=== PATIENT | female | born 1955 | race Caucasian/White ===

== ENCOUNTER 2019-10-08 11:07 | Outpatient (RCR) | payer MEDICARE, MEDICAID, SELFPAY ==
--- NOTE | 2019-10-10 16:41 | PTOPEVAL ---
Thank you for referring this patient to [facility] [facility]. Please review, sign, date and return this plan of care [facility]. I agree with and certify that the following plan of care is medically necessary. Referring Physician Date Admitting Provider: Attending Provider: Vero Henry NP Referring Provider: *PT Outpatient Evaluation Start: 10/08/19 11:10 Freq: Status: Active Protocol: Document 10/08/19 11:10 IRASEMA (Rec: 10/08/19 11:55 [email or web address] [id number]) Therapy Assessment Status Assessment Status Assessment Status Evaluation Outpatient Past Medical History Neurological History Hx Seizures Yes Hx Other Neurological Disorders Yes: BRAIN SURGERY Cardiovascular History Hx Congestive Heart Failure Yes Respiratory History Hx Chronic Obstructive Pulmonary Disease Yes (COPD) Hematological History Hx Hematological Disorders No Significant History Reproductive History Hx Hysterectomy Yes Psychosocial History Hx Anxiety Yes Pain History History of Any Previous or Ongoing No Significant History Instance of Pain Anesthesia History Hx Anesthesia Reactions No Significant History Other History Hx Cancer Yes: LUNG and Uterine Evaluation Information Problem Diagnosis weakness, other reduced mobility Onset 09/29/19 Subjective Information Pt. reports that she developed Query Text:As Reported By Patient/ lung cancer 5 years ago that Family went to her brain. She reports she is not currently doing any treatment and is currently cancer free to her knowledge. She reports she developed recent CHF exacerbation and was hospitalized for 6 days. She reports she has been very weak since returning home. She is not currently using an AD. She is on O2 at 2L currently, but states that she has been weaning since the beginning of this week. She reports that she has used O2 at night for years. She reports that her goal for therapy is to improve her strength and mobility. Prior Level of Function Activity Level (Last 3 Months) Hand Dominance Right Activity of Daily Living Ability Independent Indoor/Home Mobili
--- NOTE | 2019-10-16 10:34 | PCPTNOTE ---
10/16/19-pt called and cancelled apt today-.
--- NOTE | 2019-11-05 17:35 | PTOPEVAL ---
Thank you for referring this patient to [facility]. Please review, sign, date and return this plan of care [facility]. I agree with and certify that the following plan of care is medically necessary. Referring Physician Date Admitting Provider: Attending Provider: Vero Henry NP Referring Provider: *PT Outpatient Evaluation Start: 10/08/19 11:10 Freq: Status: Active Protocol: Document 11/05/19 11:00 IRASEMA (Rec: 11/05/19 17:35 IRASEMA [id number]) Therapy Assessment Status Assessment Status Assessment Status Re-evaluation Outpatient Past Medical History Neurological History Hx Seizures Yes Hx Other Neurological Disorders Yes: BRAIN SURGERY Cardiovascular History Hx Congestive Heart Failure Yes Respiratory History Hx Chronic Obstructive Pulmonary Disease Yes (COPD) Hematological History Hx Hematological Disorders No Significant History Reproductive History Hx Hysterectomy Yes Psychosocial History Hx Anxiety Yes Pain History History of Any Previous or Ongoing No Significant History Instance of Pain Anesthesia History Hx Anesthesia Reactions No Significant History Other History Hx Cancer Yes: LUNG and Uterine Evaluation Information Problem Diagnosis weakness, reduced mobility Subjective Information Pt. reports that she suffered Query Text:As Reported By Patient/ a recent CHF exacerbation and Family was hospitalized for 5 days and unable to attend therapy. She reports that she has since recovered and doctor recommended she return to therapy. She reports she was progressing prior to her latest incident and again feels weak and fatigue. Her goal remains to improve strength. Pain Assessment Timing of Pain Assessment Timing of Pain Assessment Pre-Treatment Self Report Self Report Pain Level 0 Pain Score Pain Score 0: Self Report Lower Extremity Muscle Strength Testing General Lower Extremity Strength Gross Lower Extremity Strength bilateral hip flexion 4/5, bilateral knee flexion 4+/5, bilateral knee extension 4+/5, bilateral ankle dorsiflexion 4/5 Upper Extremity Muscle Strength Testing General Upper Extremity Strength Gross Upper Extremity Strength Comments bilateral shoulder flexion 4/5 , bilateral shoulder abduction
--- NOTE | 2019-11-14 11:36 | PCPTNOTE ---
11/14/19- pt cancelled today's appointment.-.
== END 2019-11-17 23:59 | disposition home or self-care (01) ==
LOC: CHSPT 11:07
PROVIDERS: PCP Internal Medicine; Visit Provider Nurse Practitioner Family
DX: R53.1 Weakness (principal); Z74.09 Other reduced mobility
CPT/HCPCS: 97110; 97161; 97530

== ENCOUNTER 2019-10-17 12:39 | Outpatient (CLI) | payer MEDICARE, MEDICAID, SELFPAY ==
[2019-10-17] VITALS (7 sets, daily range): O2SAT 85–92
--- NOTE | 2019-10-17 14:24 | HOMEO2EVAL ---
Home Oxygen Evaluation RC: Home Oxygen (O2) Evaluation Start: 10/17/19 14:17 Freq: Status: Active Protocol: RPE Activity Type Activity Date Activity User E-Sign Co-Sign Detail Recorded Client Recorded Date Recorded By Document 10/17/19 14:00 KMV [email or web address] 10/17/19 14:18 KMV Document 10/17/19 14:03 KMV [email or web address] 10/17/19 14:21 KMV Document 10/17/19 14:05 KMV [email or web address] 10/17/19 14:21 KMV Document 10/17/19 14:07 KMV [email or web address] 10/17/19 14:21 KMV Document 10/17/19 14:09 KMV [email or web address] 10/17/19 14:21 KMV Document 10/17/19 14:11 KMV [email or web address] 10/17/19 14:21 KMV Document 10/17/19 14:20 KMV [email or web address] 10/17/19 14:21 KMV 10/17/19 10/17/19 10/17/19 14:00 14:03 14:05 Home O2 Evaluation Test Phase Resting Resting Resting Oxygen Delivery Room Air Nasal Cannula Nasal Cannula Oxygen Flow Rate (L/min) 1 2 Pulse Oximetry (90-100 %) 86 L 87 L 90 Home Oxygen Evaluation Comments Treatment Charges O2 Evaluation 10/17/19 10/17/19 10/17/19 14:07 14:09 14:11 Home O2 Evaluation Test Phase Exercise Exercise Exercise Oxygen Delivery Nasal Cannula Nasal Cannula Nasal Cannula Oxygen Flow Rate (L/min) 2 3 4 Pulse Oximetry (90-100 %) 85 L 87 L 91 Home Oxygen Evaluation Comments Treatment Charges 10/17/19 14:20 Home O2 Evaluation Test Phase Resting Oxygen Delivery Nasal Cannula Oxygen Flow Rate (L/min) 2 Pulse Oximetry (90-100 %) 92 Home Oxygen Evaluation Comments PT REQUIRES 2 AT REST AND 4 WITH ACTIVITY Treatment Charges
--- NOTE | 2019-10-17 14:25 | PCRCNOTE ---
PT FAILED SIX MINUTE WALK, HOME O2 EVAL DONE AND FAXED TO OFFICE.
--- NOTE | 2019-10-19 22:21 | WPDPFTINT ---
PFT Interpretation PFT Interpretation: DOS: 10/17/2019 REQUESTING: Dr. Rashid REASON FOR TESTING: Shortness of breath PULMONARY FUNCTION TESTS Spirometry: FEV1 is 56% predicted, 1.47 L. FVC is decreased 67%. FEV1% is decreased 61% consistent with airflow obstruction. No change with bronchidilator. Lung volumes: Normal TLC. Increased RV 142% consistent with moderate air trapping. Airway resistance increased 296%. Diffusion: DLCO is 44%, moderately decreased. Flow volume loop: Scooping of the expiratory limb. IMPRESSION: Moderately severe obstructive ventilatory impairment with moderate air trapping, moderate diffusion impairment without response to bronchodilator. Lack of response to bronchodilator should not preclude use if clinically indicated. Greta Chapa MD
== END 2019-10-17 12:40 | disposition home or self-care (01) ==
LOC: ANHPFT 12:42
PROVIDERS: PCP Internal Medicine; Visit Provider Internal Medicine Critical Care Medicine
DX: R06.02 Shortness of breath (principal)
CPT/HCPCS: 94060; 94618; 94726; 94729

== ENCOUNTER 2020-01-30 13:18 | Outpatient (RCR) | payer MEDICARE, MEDICAID, SELFPAY ==
[2020-01-30 13:20] VITALS: BP 137/70; BP 141/69; PULSE 83; PULSE 87; RESP 18; O2SAT 97; BMI 19.0
[2020-01-30 13:22] VITALS: BP 132/93
== END 2020-02-13 18:00 | disposition home or self-care (01) ==
PROVIDERS: PCP Family Medicine; Visit Provider Family Medicine
DX: I50.9 Heart failure, unspecified (principal)
CPT/HCPCS: 93798

== ENCOUNTER 2020-02-16 13:26 | Outpatient (RCR) | payer MEDICARE, MEDICAID, SELFPAY | END 2020-04-02 14:00 | disposition home or self-care (01) | PROVIDERS: PCP Family Medicine; Visit Provider Family Medicine | DX: J44.9 Chronic obstructive pulmonary disease, unspecified (principal); I50.810 Right heart failure, unspecified | CPT/HCPCS: 97150; G0424 ==

== ENCOUNTER 2020-05-06 10:40 | Outpatient (RCR) | payer SELFPAY | END 2020-08-06 13:05 | disposition home or self-care (01) | LOC: CHSCPRIII 10:40 | PROVIDERS: PCP Family Medicine; Visit Provider Family Medicine | DX: J44.9 Chronic obstructive pulmonary disease, unspecified (principal); I50.810 Right heart failure, unspecified | CPT/HCPCS: 97150; 99199; G0424 ==

== ENCOUNTER 2020-10-22 16:55 | Emergency (ER) | payer MEDICARE, MEDICAID, SELFPAY ==
--- NOTE | ~2020-10-22 | CT_ITS ---
EXAMINATION: CTA chest PE abdomen pel DATE: 10/22/2020 19:20 LABORATORY MECHANICAL TECHNICIAN INDICATION: Diffuse body pain. Elevated d-dimer. Lung metastases. TECHNIQUE: Computed tomographic angiography (CTA) of the chest was performed with 100 mL Omnipaque-35 0 intravenous contrast. The dose-length product was 623.80 mGy-cm. Maximum intensity projection 3D-re constructions of the aorta and other arteries were constructed by the technologist on a separate work station. Automated exposure control and iterative reconstruction technique were employed. COMPARISON: None. FINDINGS: Study is technically adequate without evidence for pulmonary embolism. Pulmonary arteries a re enlarged. Cardiomegaly. No significant pleural or pericardial effusion. Mild mediastinal lymphaden opathy, nonspecific. There is left upper lobe consolidation which may represent atelectasis/scarring or pneumonia although malignancy is not excluded. Severe emphysema. Bibasilar dependent atelectasis. No there is cystic change in the right kidney centrally, likely representing hydronephrosis with anaya ical thinning. IMPRESSION: 1. No evidence for pulmonary embolism. 2: Left upper lobe consolidation may represent atelectasis/scarring or pneumonia. Malignancy is not e xcluded. 3: Severe emphysema. 4: Cardiomegaly. Reviewed, dictated and finalized at location A. RATORY MECHANICAL TECHNICIAN IMPRESSION: 1. No evidence for pulmonary embolism. 2: Left upper lobe consolidation may represent atelectasis/scarring or pneumoni a. Malignancy is not excluded. 3: Severe emphysema. 4: Cardiomegaly.
--- NOTE | ~2020-10-22 | CT_ITS ---
EXAMINATION: CT brain wo/w con DATE: 10/22/2020 19:12 INDICATION: Metastases to the brain. Diffuse body pain. TECHNIQUE: Computed tomography (CT) of the head was performed without intravenous contrast. The dose- length product was 1210.66 mGy-cm. Automated exposure control and iterative reconstruction technique were employed. COMPARISON: CT dated 09/21/2019 FINDINGS: Cerebellar tonsils extend below the foramen magnum, consistent with Chiari I malformation. There is chronic encephalomalacia left parietal lobe with overlying craniotomy defect from prior rese ction. No acute intracranial hemorrhage, infarction, mass or mass effect. No abnormal contrast enhanc ement. There is right sphenoid sinusitis. IMPRESSION: 1. No acute intracranial abnormality. 2: Chronic left parietal lobe encephalomalacia likely from prior resection. 3: Chiari I malformation. 4: Mild sinus disease. Reviewed, dictated and finalized at location A. ILE FINISHER
[2020-10-22 17:05] VITALS: BP 110/60; PULSE 72; RESP 18; TEMP 37; O2SAT 96
[2020-10-22 17:40] LABS: Basophils Absolute Auto 0.05 K/mm3 (0.00-0.10); Basophils Percent Auto 0.7 % (0.0-1.0); Eosinophils Absolute Auto 0.04 K/mm3 (0.02-0.50); Eosinophils Percent Auto 0.6 % (1.0-6.0); Hematocrit 42.4 % (35.0-49.0); Immature Granulocyte Absolute 0.02 K/mm3 (0.00-0.00); Immature Granulocyte Percent A 0.3 % (0.0-0.0); Lymphocytes Absolute Auto 0.88 K/mm3 (1.10-4.50); Lymphocytes Percent Auto 13.1 % (18.0-42.0); Mean Corpuscular Hemoglobin 32.1 pg (27.0-31.0); Mean Corpuscular Volume 97.2 fL (78.0-102.0); Mean Platelet Volume 10.1 fl (9.2-11.8); Monocytes Absolute Auto 0.94 K/mm3 (0.10-0.90); Monocytes Percent Auto 13.9 % (2.0-11.0); Neutrophils Absolute Auto 4.8 K/mm3 (1.7-7.2); Neutrophils Percent Auto 71.4 % (50.0-70.0); Platelet Count Result 173 K/mm3 (150-420); Red Blood Count 4.36 M/mm3 (4.20-5.40); Red Cell Distribution Width 12.4 % (11.6-14.4); White Blood Count 6.7 K/mm3 (4.8-10.8)
[2020-10-22] MEDS: HYDROmorphone HCL INJ (*CRX) 2 MG/ML VIAL 0.5 MG IV PUSH ×2 (17:53→19:27)
[2020-10-22] MEDS: ONDANSETRON INJ 4 MG/2 ML VIAL IV PUSH ×2 (17:53→19:23)
[2020-10-22 17:56] LABS: Alanine Aminotransferase 21 U/L (14-59); Albumin Level 3.8 g/dL (3.4-5.0); Alkaline Phosphatase 42 U/L (46-116); Anion Gap 3 mmol/L (8-16); Aspartate Amino Transferase 19 U/L (15-37); Bilirubin,Total 0.4 mg/dL (0.00-1.00); Blood Urea Nitrogen 11 mg/dL (7-18); Calcium 9.1 mg/dL (8.5-10.1); Carbon Dioxide 38 mmol/L (21-32); Chloride 92 mmol/L (98-108); D Dimer 0.68 mg/L (0.19-0.50); Estimated CRCL calculation 63 ml/min; Estimated Glomerular Filt Rate > 60; Glucose 103 mg/dL (70-99); Osmolality Calculated 275 mOsm/kg (285-295); Potassium 3.9 mmol/L (3.5-5.1); Sodium 133 mmol/L (136-145); Total Protein 7.3 g/dL (6.4-8.2); Troponin I 9.1 ng/L (0.00-60.4)
[2020-10-22 17:58] LABS: Creatine Kinase 89 U/L (26-192)
--- NOTE | 2020-10-22 18:27 | ED.GENADULT ---
HPI - General Adult General Chief complaint: Unspecified Stated complaint: shoulder pain Time Seen by Provider: 10/22/20 17:15 Source: patient Mode of arrival: ambulatory Limitations: no limitations History of Present Illness HPI narrative: Patient comes in with complaint of pain in medial, and superior left shoulder blade on her back. This does not seem to be made better with movement or rest, and appears to be moderately severe or worse in intensity. This pain has gone on for many days, but has become more severe over the last two days. She comes in due to pain. Severity: moderate Quality: stabbing Pain Consistency: constant Relieving factors: none Exacerbating factors: none Associated symptoms: denies other symptoms and other (no fever, no chills, no increased shortness of breath, above baseline ) Related Data Home Medications Medication Instructions Recorded Confirmed albuterol sulfate 2.5 mg INHALATION Q6H 06/04/20 10/22/20 furosemide [Lasix] See Rx Instructions .ROUTE .COMPLEX 10/22/20 10/22/20 Allergies Allergy/AdvReac Type Severity Reaction Status Date / Time Penicillins Allergy Mild Nausea and Verified 06/18/20 10:31 Vomiting sertraline AdvReac Mild Hyperactive Verified 06/18/20 10:31 Review of Systems Constitutional: Constitutional: Reports no additional constitutional complaints Eyes: Eyes: Reports no additional eye complaints ENT: Reports system reviewed and no additional complaints, except as documented Cardiovascular: Cardiovascular: Reports no additional cardiovascular complaints Respiratory: Respiratory: Reports no additional respiratory complaints Gastrointestinal: Gastrointestinal: Reports no additional gastrointestinal complaints Genitourinary: Genitourinary: Reports no additional female genitourinary complaints Musculoskeletal: Musculoskeletal: Reports no additional musculoskeletal complaints Integumentary/Breasts: Skin/Breast: Reports system reviewed and no additional complaints, except as docu Neurologic: Reports system reviewed and no additional complaints, except as documented Psychiatric: Psychiatric: Reports no additional psychiatric complaints Endocrine: Endocrine: Reports no additional endocrine complaints Hematologic/Lymphatic: Hematologic/Lymphatic: Reports no additional hematologic/lymphatic complaints Allergic/Immunologic: Allergic/Immunologic: Reports no additional allergic/immunologic complaints PMFSH Past Medical History Medical History Anxiety about health Chronic back pain COPD (chronic obstructive pulmonary disease) Dependence on continuous supplemental oxygen Major depression, recurrent Nicotine dependence in remission Stage 4 lung cancer Underweight Surgical History Surgical History History of hysterectomy Hx of tonsillectomy Family History Family History Father Lung cancer Mother Cervical cancer Social History Social History Smoking packs per day: 0.75 Smoking cigarettes per day: 15.0 Years smoked: 40 Smoking pack-years: 30.00 Smoking status: Former smoker Tobacco type: cigarettes Smoking end date: 12/17/15 Alcohol intake: current Drinks per week: 1 Substance use: never Gender identity (if verbalized by the patient): Female Spiritual care concerns: No Agree to blood products: Yes Exam Const: General: cooperative, in distress and ill appearing Nutritional Appearance: thin Orientation/consciousness: oriented to person, oriented to place and oriented to time Limitations: no limitations HENMT: Head: normal to inspection and atraumatic Ears: hearing grossly normal bilaterally, external ears normal and TM's normal bilaterally General nose exam: Normal external nose present and Normal nasal
[2020-10-22] MEDS: SODIUM CHLORIDE 0.9% IV 1,000 ML 500 ML IV CONT (19:27)
[2020-10-22] MEDS: METOCLOPRAMIDE HCL INJ 10 MG/2 ML VIAL IV PUSH (19:40)
[2020-10-22] MEDS: PROMETHAZINE HCL 25 MG/ML AMPUL IM (20:37)
[2020-10-22 20:44] VITALS: BP 146/65; PULSE 74; RESP 18; TEMP 36.2; O2SAT 96
== END 2020-10-22 21:06 | disposition home or self-care (01) ==
PROVIDERS: Emergency Provider Emergency Medicine; PCP Family Medicine
DX: R07.89 Other chest pain (principal); J44.9 Chronic obstructive pulmonary disease, unspecified; Z99.81 Dependence on supplemental oxygen; Z85.118 Personal history of other malignant neoplasm of bronchus and lung; Z87.891 Personal history of nicotine dependence
CPT/HCPCS: 36415; 70470; 71275; 74177; 80053; 82550; 83880; 84484; 85025; 85380; 96361; 96372; 96374; 96375; 96376; 99283; 99284; J1170; J2405; J2550; J2765; J7030; Q9967

== ENCOUNTER 2021-06-08 14:14 | Outpatient (CLI) | payer MEDICARE, MEDICAID, SELFPAY ==
[2021-06-08 15:55] LABS: SARS-CoV-2 RNA PCR Negative (Negative)
== END 2021-06-08 14:15 | disposition home or self-care (01) ==
LOC: CHSLAB 14:17
PROVIDERS: PCP Nurse Practitioner Family; Visit Provider Nurse Practitioner Family
DX: R09.81 Nasal congestion (principal); Z20.822 Contact with and (suspected) exposure to COVID-19
CPT/HCPCS: C9803; U0003; U0005

== ENCOUNTER 2021-06-13 11:51 | Outpatient (CLI) | payer MEDICARE, MEDICAID, SELFPAY ==
[2021-06-13 13:34] LABS: SARS-CoV-2 RNA PCR Negative (Negative)
== END 2021-06-13 11:52 | disposition home or self-care (01) ==
LOC: CHSLAB 11:57
PROVIDERS: PCP Family Medicine; Visit Provider Family Medicine
DX: Z20.822 Contact with and (suspected) exposure to COVID-19 (principal)
CPT/HCPCS: C9803; U0003; U0005

== ENCOUNTER 2021-08-24 11:41 | Outpatient (CLI) | payer OTHER, SELFPAY ==
[2021-08-24 13:00] LABS: SARS-CoV-2 RNA PCR Negative (Negative)
== END 2021-08-24 11:42 | disposition home or self-care (01) ==
LOC: CHSLAB 11:48
PROVIDERS: PCP Family Medicine; Visit Provider Family Medicine
DX: R09.81 Nasal congestion (principal); Z20.822 Contact with and (suspected) exposure to COVID-19
CPT/HCPCS: C9803; U0003; U0005

== ENCOUNTER 2021-08-31 11:26 | Observation (INO) | payer OTHER, SELFPAY ==
[2021-08-31] VITALS (9 sets, daily range): BP systolic 94–158; BP diastolic 57–79; PULSE 67–115; RESP 20–22; TEMP 35.9–36.3; O2SAT 90–97; BMI 18.3
--- NOTE | ~2021-08-31 | XR_ITS ---
EXAMINATION: XR chest 1V portable EXAM DATE: 08/31/2021 12:42 INDICATION: Shortness of breath. History left-sided lung cancer. TECHNIQUE: Portable AP frontal chest x-ray was obtained. Comparison is made to prior examination from 09/22/2019. FINDINGS: The lungs are hyperinflated which can be seen with chronic obstructive pulmonary disease ( a clinical diagnosis of functional impairment), but is not diagnostic of it. There is cardiomegaly. P ossible mild pulmonary edema. Right 3rd 4th and 5th rib fractures again noted with increase in adjace nt pleural opacity, probably scarring in patient with known history of lung cancer There is aortic ar teriosclerosis. IMPRESSION: 1. Cardiomegaly, possible mild pulmonary edema. 2. Chronic left rib fractures and some increase in adjacent pleural opacity. 3. Hyperinflation. Reviewed, dictated and finalized at location B. EDITED PHARMACY TECHNICIAN
[2021-08-31 12:18] LABS: Basophils Absolute Auto 0.03 K/mm3 (0.00-0.10); Basophils Percent Auto 0.5 % (0.0-1.0); Eosinophils Absolute Auto 0.03 K/mm3 (0.02-0.50); Eosinophils Percent Auto 0.5 % (1.0-6.0); Hematocrit 39.1 % (35.0-42.0); Hemoglobin 13.7 g/dL (11.7-13.8); Immature Granulocyte Absolute 0.04 K/mm3 (0.00-0.00); Immature Granulocyte Percent A 0.6 % (0.0-0.0); Lymphocytes Absolute Auto 0.46 K/mm3 (1.10-4.50); Lymphocytes Percent Auto 6.9 % (18.0-42.0); Mean Corpuscular Hemoglobin 33.5 pg (27.0-31.0); Mean Corpuscular Volume 95.6 fL (78.0-102.0); Mean Platelet Volume 9.4 fl (9.2-11.8); Neutrophils Absolute Auto 5.3 K/mm3 (1.7-7.2); Neutrophils Percent Auto 79.5 % (50.0-70.0); Platelet Count Result 231 K/mm3 (150-420); Red Blood Count 4.09 M/mm3 (4.20-5.40); Red Cell Distribution Width 11.8 % (11.6-14.4); White Blood Count 6.6 K/mm3 (4.8-10.8)
[2021-08-31 12:28] LABS: Anion Gap 4 mmol/L (8-16); Blood Urea Nitrogen 9 mg/dL (7-18); Calcium 9.4 mg/dL (8.5-10.1); Carbon Dioxide 36 mmol/L (21-32); Chloride 84 mmol/L (98-108); Estimated CRCL calculation 54 ml/min; Estimated Glomerular Filt Rate > 60; Glucose 117 mg/dL (70-99); Osmolality Calculated 257 mOsm/kg (285-295); Potassium 5.5 mmol/L (3.5-5.1); Sodium 124 mmol/L (136-145)
[2021-08-31 12:56] LABS: SARS-CoV-2 RNA PCR Negative (Negative)
--- NOTE | 2021-08-31 13:00 | ED.SOB ---
HPI - SOB/Dyspnea General Chief Complaint: Shortness of Breath/Dyspnea Stated Complaint: SOB,chest congestion,dizziness,poss fluid in ears Source: patient Mode of arrival: ambulatory Limitations: no limitations History of Present Illness HPI Narrative: Pt has been feeling increasingly SOB. She started feeling worse and was put on Antibiotics on MD elicited complaint: shortness of breath Pertinent past history: COPD Context: recent illness Exacerbating factors: exertion Relieving factors: nothing Known history of: COPD Associated symptoms: denies other symptoms Treatment prior to arrival: none Related Data Home oxygen amount: 2 liters (2.5) Home Medications Medication Instructions Recorded Confirmed albuterol sulfate 2.5 mg INHALATION Q6H 06/04/20 10/22/20 Allergies Allergy/AdvReac Type Severity Reaction Status Date / Time Penicillins Allergy Mild Nausea and Verified 08/24/21 15:24 Vomiting sertraline AdvReac Mild Hyperactive Verified 08/24/21 15:24 Review of Systems Constitutional: Constitutional: Reports no additional constitutional complaints Eyes: Eyes: Reports no additional eye complaints ENT: Reports as per HPI Cardiovascular: Cardiovascular: Reports no additional cardiovascular complaints Respiratory: Respiratory: Reports dyspnea Gastrointestinal: Gastrointestinal: Reports no additional gastrointestinal complaints Genitourinary: Genitourinary: Reports no additional female genitourinary complaints Musculoskeletal: Musculoskeletal: Reports no additional musculoskeletal complaints Integumentary/Breasts: Skin/Breast: Reports system reviewed and no additional complaints, except as docu Neurologic: Reports system reviewed and no additional complaints, except as documented Psychiatric: Psychiatric: Reports no additional psychiatric complaints Endocrine: Endocrine: Reports no additional endocrine complaints Hematologic/Lymphatic: Hematologic/Lymphatic: Reports no additional hematologic/lymphatic complaints Allergic/Immunologic: Allergic/Immunologic: Reports no additional allergic/immunologic complaints [facility] Past Medical History Medical History (Updated 08/31/21 @ 13:44 by Lesa Fajardo MD) Anxiety about health Chronic back pain COPD (chronic obstructive pulmonary disease) Dependence on continuous supplemental oxygen Major depression, recurrent Nicotine dependence in remission Stage 4 lung cancer Underweight Surgical History Surgical History History of hysterectomy Hx of tonsillectomy Family History Family History Father Lung cancer Mother Cervical cancer Social History Social History Smoking packs per day: 0.75 Smoking cigarettes per day: 15.0 Years smoked: 40 Smoking pack-years: 30.00 Smoking status: Former smoker Tobacco type: cigarettes Smoking end date: 12/17/15 Alcohol intake: current Drinks per week: 1 Substance use: never Gender identity (if verbalized by the patient): Female Spiritual care concerns: No Agree to blood products: Yes Exam Const: General: no acute distress and alert Orientation/consciousness: patient oriented x3 HENMT: Head: normal to inspection Eyes: Conjunctivae: conjunctivae normal Pupils: Equal, round and reactive pupils present EOM: EOMs intact bilaterally Neck: Neck: normal visual inspection and no lymphadenopathy Chest: Chest palpation & inspection: normal inspection of the chest Resp: Effort & Inspection: normal respiratory effort Auscultation: clear to auscultation bilaterally Cardio: Rate: regular rate Rhythm: regular rhythm GI: GI Palp: Yes Soft to palpation and No Tenderness to palpation present (GI) : General: Yes no CVA tenderness Back/Spine/Pelvis: Back: no CVA tenderness and C
[2021-08-31] MEDS: SODIUM CHLORIDE 0.9% IV 1,000 ML 150 ML IV CONT (13:11)
--- NOTE | 2021-08-31 13:32 | PC.NURSE ---
Floor and registration notified of admission.
[2021-08-31 13:55] LABS: NT Pro B Type Natriuretic Pept 306 pg/mL (0-125)
[2021-08-31] MEDS: methylPREDNISolone SOD SUCC 125 MG VIAL 60 MG IV PUSH (17:12)
--- NOTE | 2021-08-31 18:24 | PC.NURSE ---
pt resting in bed, daughter in room, pt requests anxiety med, keppra and pain medication, will speak with housekeeping associate about adding prn pain medication, no other complaints
[2021-08-31] MEDS: HYDROcodone/acetaminophen (*CRX) 7.5-325 MG TABLET 1 TAB PO (18:47)
[2021-08-31] MEDS: levETIRAcetam 500 MG TABLET 1500 MG PO ×2 (18:48→21:20)
[2021-08-31] MEDS: LORazepam INJ (*CRX) 2 MG/ML VIAL 0.5 MG IV PUSH (18:49)
[2021-08-31] MEDS: IPRATROPIUM 0.5 MG/ALBUTEROL SULFATE 2.5 MG AMPUL.NEB 3 ML INHALATION (19:06)
[2021-08-31] MEDS: SODIUM CHLORIDE 0.9% IV 1,000 ML 125 ML IV CONT (21:18)
[2021-08-31] MEDS: FLUTICASONE PROPIONATE 0.05% NA SPR 16 GM BTL (*BKC) 1 SPRAY NASAL (21:20)
[2021-08-31] MEDS: MONTELUKAST SODIUM 10 MG TABLET PO (21:20)
[2021-08-31] MEDS: traZODone HCL 50 MG TABLET PO (21:21)
--- NOTE | 2021-08-31 22:10 | PC.NURSE ---
daughter does not wish to leave unless pt has an alarm on the bed, bed alarm not operational, chair alarm placed under pt, pt is aox4 and agrees to chair alarm use, pt reminded to keep arm straight or iv alarm will sound, call light on lap,
[2021-09-01] VITALS (8 sets, daily range): BP systolic 119–132; BP diastolic 50–62; PULSE 75–88; RESP 19–20; TEMP 36.1–36.4; O2SAT 86–95
[2021-09-01] MEDS: IPRATROPIUM 0.5 MG/ALBUTEROL SULFATE 2.5 MG AMPUL.NEB 3 ML INHALATION ×2 (00:40→06:14)
[2021-09-01] MEDS: methylPREDNISolone SOD SUCC 125 MG VIAL 60 MG IV PUSH ×2 (00:46→06:43)
[2021-09-01 05:25] LABS: Hematocrit 39.3 % (35.0-42.0); Hemoglobin 12.9 g/dL (11.7-13.8); Mean Corpuscular HGB Conc 32.8 g/dL (32.0-36.0); Mean Corpuscular Hemoglobin 32.2 pg (27.0-31.0); Mean Platelet Volume 9.7 fl (9.2-11.8); Platelet Count Result 224 K/mm3 (150-420); Red Blood Count 4.01 M/mm3 (4.20-5.40); Red Cell Distribution Width 11.9 % (11.6-14.4)
[2021-09-01] MEDS: SODIUM CHLORIDE 0.9% IV 1,000 ML 125 ML IV CONT (05:41)
[2021-09-01 05:42] LABS: Alanine Aminotransferase 25 U/L (14-59); Albumin Level 3.1 g/dL (3.4-5.0); Alkaline Phosphatase 43 U/L (46-116); Anion Gap 6 mmol/L (8-16); Aspartate Amino Transferase 17 U/L (15-37); Bilirubin,Total 0.2 mg/dL (0.00-1.00); Blood Urea Nitrogen 8 mg/dL (7-18); Calcium 8.6 mg/dL (8.5-10.1); Carbon Dioxide 32 mmol/L (21-32); Chloride 92 mmol/L (98-108); Estimated CRCL calculation 68 ml/min; Estimated Glomerular Filt Rate > 60; Glucose 131 mg/dL (70-99); Magnesium 1.7 mg/dL (1.8-2.4); Osmolality Calculated 270 mOsm/kg (285-295); Potassium 5.1 mmol/L (3.5-5.1); Sodium 130 mmol/L (136-145); Total Protein 6.3 g/dL (6.4-8.2)
--- NOTE | 2021-09-01 06:47 | PC.NURSE ---
Pt given solumedrol 60 mg IVP as ordered.
[2021-09-01] MEDS: LORazepam INJ (*CRX) 2 MG/ML VIAL 0.5 MG IV PUSH (07:06)
--- NOTE | 2021-09-01 07:10 | PC.NURSE ---
Pt given lorazepam 0.5 mg per pt's request to relieve anxiety.
[2021-09-01] MEDS: ONDANSETRON INJ 4 MG/2 ML VIAL IV PUSH (08:13)
[2021-09-01] MEDS: levETIRAcetam 500 MG TABLET 1500 MG PO (08:15)
[2021-09-01] MEDS: FUROSEMIDE 20 MG TABLET PO (08:16)
[2021-09-01] MEDS: lisinopriL 20 MG TABLET PO (08:16)
[2021-09-01] MEDS: FLUTICASONE PROPIONATE 0.05% NA SPR 16 GM BTL (*BKC) 1 SPRAY NASAL (08:16)
[2021-09-01] MEDS: MAGNESIUM OXIDE 400 MG TABLET PO (09:58)
--- NOTE | 2021-09-01 10:03 | PM.SD2 ---
Same Day Admit/Disch: HPI History of Present Illness Chief complaint: HYPONATREMIA SOB COPD Narrative: Kellen Mao is a 66 year old female that presents chest congestion, and dyspnea. Patient has a past medical history of anxiety and depression, chronic back pain, COPD, continue supplementary oxygen dependent, and stage IV lung cancer with radiation and chemo treatment. According to patient she recently visited her doctor's office who gave her antibiotics for upper respiratory infection. Patient notes that her condition has worsened and she has become more more short of breath since her antibiotic treatment. Patient is a end-stage COPD and notes that she took her home medication without any relief. Patient received Rocephin with nebulizer treatment and Solu-Medrol as an inpatient. Vital signs 119/50, 87, 20, 97.2, 95% on 1 3 L nasal cannula. WBC 6.6, hemoglobin 13.7, hematocrit 39.1, platelets 231, sodium 124, potassium 5.5, BUN 9 creatinine 0.83 glucose 117, liver function test within normal limit BNP 306 chest x-ray with hyperinflation and mild pulmonary edema. Patient being admitted for COPD exacerbation. Patient notes that she continues to be short of breath that this is her baseline. She agrees that she is ready for discharge. The patient denies , CP, palpitation, extremity numbness, lightheadedness, dizziness, constipation, diarrhea, chills, or fever. Observation 60 minutes PMFSH Past Medical History Medical History (Updated 08/31/21 @ 13:44 by Lesa Fajardo MD) Anxiety about health Chronic back pain COPD (chronic obstructive pulmonary disease) Dependence on continuous supplemental oxygen Major depression, recurrent Nicotine dependence in remission Stage 4 lung cancer Underweight Surgical History Surgical History History of hysterectomy Hx of tonsillectomy Family History Family History Father Lung cancer Mother Cervical cancer Social History Social History Smoking packs per day: 1 Smoking cigarettes per day: 20.0 Years smoked: 40 Smoking pack-years: 40.00 Smoking status: Former smoker Tobacco type: cigarettes Second hand tobacco smoke exposure: No Smoking end date: 08/17/21 Alcohol intake: current Drinks per week: 1 Substance use: never Substance use type: does not use Gender identity (if verbalized by the patient): Female Sexual Orientation (if Verbalized by the Patient): Straight or Heterosexual Spiritual care concerns: No Agree to blood products: Yes Same Day Admit/Disch: Med Pre-admit Medications Home Medications Medication Instructions Recorded Confirmed Type albuterol sulfate 2.5 mg INHALATION Q6H 06/04/20 08/31/21 History umeclidinium 62.5 mcg-vilanterol See Rx Instructions .ROUTE 03/28/21 08/31/21 Rx 25 mcg/actuation powdr for .COMPLEX #60 ea inhalation prednisone 5 mg tablet 5 mg PO DAILY #90 tablet 06/20/21 08/31/21 Rx lisinopril 20 mg tablet See Rx Instructions .ROUTE 07/20/21 08/31/21 Rx .COMPLEX #90 tablet montelukast 10 mg tablet See Rx Instructions .ROUTE 07/20/21 08/31/21 Rx .COMPLEX #90 tablet hydrocodone 5 mg-acetaminophen 325 1 tablet PO Q8H PRN #21 tablet 08/03/21 08/31/21 Rx mg tablet alprazolam 0.5 mg tablet 0.5 mg PO DAILY PRN #20 tablet 08/12/21 08/31/21 Rx albuterol sulfate 90 mcg/actuation See Rx Instructions .ROUTE 08/15/21 08/31/21 Rx aerosol inhaler .COMPLEX #18 g fluticasone propionate 50 See Rx Instructions .ROUTE 08/15/21 08/31/21 Rx mcg/actuation nasal .COMPLEX #16 ml spray,suspension sulfamethoxazole 800 1 tablet PO Q12H 10 Days #20 tablet 08/24/21 08/31/21 Rx mg-trimethoprim 160 mg tablet levetiracetam 1,500 mg PO BID 08/31/21 08/31/21 History benzonatate 200 mg PO TID PRN #30 cap 09/01/21 Rx fluticason
--- NOTE | 2021-09-01 12:15 | PC.NURSE ---
Patient discharged home transport by family via personal vehicle. All personal items taken with patient and family. IV site discontinued and removed prior to discharge. Discharge instructions given and patient acknowledged understanding of instructions. Staff escorted patient and family to main entrance and assisted into personal vehicle for transport home.
--- NOTE | 2021-09-06 14:26 | PC.NURSE ---
Pt states she received and understood her discharge instructions. Pt has no other comments.
== END 2021-09-01 12:10 | disposition home or self-care (01) ==
LOC: CHSED 13:45 → CHS2ND 13:52
PROVIDERS: Nurse Practitioner; Admitting Provider Emergency Medicine; Emergency Provider Emergency Medicine; PCP Family Medicine; Visit Provider Emergency Medicine
DX: J44.1 Chronic obstructive pulmonary disease with (acute) exacerbation (principal); E87.1 Hypo-osmolality and hyponatremia; C34.90 Malignant neoplasm of unspecified part of unspecified bronchus or lung; I50.9 Heart failure, unspecified; I11.0 Hypertensive heart disease with heart failure; M54.9 Dorsalgia, unspecified; G89.29 Other chronic pain; I10 Essential (primary) hypertension; F41.8 Other specified anxiety disorders; F32.9 Major depressive disorder, single episode, unspecified; Z99.81 Dependence on supplemental oxygen; Z20.822 Contact with and (suspected) exposure to COVID-19; Z87.891 Personal history of nicotine dependence
CPT/HCPCS: 36415; 71045; 80048; 80053; 83735; 83880; 85025; 85027; 94640; 96360; 96361; 96365; 96375; 96376; 99285; A9270; C9803; G0378; G0379; J0696; J2060; J2405; J2930; J7030; U0003; U0005

== ENCOUNTER 2021-09-19 13:56 | Outpatient (CLI) | payer OTHER, SELFPAY ==
[2021-09-19 14:47] LABS: Anion Gap 6 mmol/L (8-16); Blood Urea Nitrogen 16 mg/dL (7-18); Calcium 9.2 mg/dL (8.5-10.1); Carbon Dioxide 38 mmol/L (21-32); Chloride 96 mmol/L (98-108); Estimated Glomerular Filt Rate > 60; Glucose 102 mg/dL (70-99); Osmolality Calculated 291 mOsm/kg (285-295); Potassium 4.6 mmol/L (3.5-5.1); Sodium 140 mmol/L (136-145)
== END 2021-09-19 13:57 | disposition home or self-care (01) ==
LOC: CHSLAB 13:58
PROVIDERS: PCP Family Medicine; Visit Provider Family Medicine
DX: E87.1 Hypo-osmolality and hyponatremia (principal)
CPT/HCPCS: 36415; 80048

== ENCOUNTER 2021-10-05 11:43 | Outpatient (CLI) | payer OTHER, SELFPAY ==
[2021-10-05 13:00] LABS: Influenza Control Valid (Valid); SARS-CoV-2 Ag Negative (Negative)
== END 2021-10-05 11:44 | disposition home or self-care (01) ==
LOC: CHSLAB 11:46
PROVIDERS: PCP Family Medicine; Visit Provider Family Medicine
DX: R05.9 Cough, unspecified (principal); Z20.822 Contact with and (suspected) exposure to COVID-19
CPT/HCPCS: 87426; 87804; C9803

== ENCOUNTER 2022-01-16 14:19 | Emergency (ER) | payer OTHER, SELFPAY ==
--- NOTE | ~2022-01-16 | XR_ITS ---
EXAMINATION: XR chest 1V portable INDICATION: Shortness of breath TECHNIQUE: Portable AP chest at 1455 hours COMPARISON: 08/31/2021 FINDINGS: There are mild bibasilar airspace opacities. There is no pleural effusion or pneumothorax. Cardiomegaly is noted. There is chronic deformity of the left upper outer chest wall associated with healed rib fractures. IMPRESSION: 1. Bibasilar airspace opacities, likely atelectasis. 2. Stable cardiomegaly. Reviewed, dictated and finalized at location A.
--- NOTE | ~2022-01-16 | CT_ITS ---
EXAMINATION: CTA chest PE protocol DATE: 01/16/2022 16:20 INDICATION: Shortness of breath TECHNIQUE: Computed tomography angiography (CTA) of the chest was performed with 100 mL Omnipaque-350 intravenous contrast timed to evaluate the pulmonary arteries. Coronal maximum intensity projection 3D-reconstructions were created by the technologist. The dose-length product (DLP) was 199.34 mGy-cm. Automated exposure control and iterative reconstruction technique were employed. COMPARISON: 10/22/2020 FINDINGS: The pulmonary arteries are well-opacified. No pulmonary embolism is identified. There is se ana luisa emphysema. There are chronic opacities of the left upper lobe, likely treated malignancy. There is complete atelectasis of the right middle lobe with obstruction of the middle lobe bronchus. There is mild atelectasis in the right lower lobe. There is no pleural effusion or pneumothorax. Cardiomega ly is noted. No pathologically enlarged thoracic lymph nodes are identified. There is enlargement of the main and central pulmonary arteries, consistent with pulmonary hypertension. There is chronic mar ked dilatation of the right renal pelvis. There is mild thoracic spondylosis. IMPRESSION: 1. Complete atelectasis of the right middle lobe with obstruction of the right middle lobe bronchus w hich may be due to lesion or debris. 2. Chronic opacities in the left upper lobe, likely treated malignancy. 3. No pulmonary embolism identified. 4. Severe emphysema 5. Cardiomegaly 6. Chronic right hydronephrosis. Reviewed, dictated and finalized at location A. IMPRESSION: 1. Complete atelectasis of the right middle lobe with obstruction of the right middle lobe bronchus which may be due to lesion or debris. 2. Chronic opacities in the left upper lobe, likely treated malignancy. 3. No pulmonary embolism identified. 4. Severe emphysema 5. Cardiomegaly 6. Chronic right hydronephrosis.
[2022-01-16 14:20] VITALS: BP 150/74; PULSE 94; RESP 20; TEMP 36.6; O2SAT 95
--- NOTE | 2022-01-16 14:25 | ED.SOB ---
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 she normally uses 2 liters/minute but increased oxygen to 3-4 liters/minute MD elicited complaint: shortness of breath and cough Pertinent past history: COPD and congestive heart failure Onset (ago): day(s) ( Started 4 days ago) Context: anxiety Timing: intermittent Severity: moderate Exacerbating factors: nothing Relieving factors: nothing Known history of: COPD and congestive heart failure Associated symptoms: denies other symptoms Treatment prior to arrival: oxygen Related Data Home oxygen amount: 4 liters Home Medications Medication Instructions Recorded Confirmed albuterol sulfate 2.5 mg INHALATION Q6H 06/04/20 01/16/22 levetiracetam 1,500 mg PO BID 08/31/21 01/16/22 Allergies Allergy/AdvReac Type Severity Reaction Status Date / Time Penicillins AdvReac Mild Nausea and Verified 01/16/22 14:28 Vomiting sertraline AdvReac Mild Hyperactive Verified 01/16/22 14:28 Review of Systems Review of Systems: All systems reviewed & are unremarkable except as noted in HPI and below Constitutional: Constitutional: Reports as per HPI and Reports no additional constitutional complaints Eyes: Eyes: Reports as per HPI and Reports no additional eye complaints ENT: Reports system reviewed and no additional complaints, except as documented and Reports as per HPI Cardiovascular: Cardiovascular: Reports as per HPI and Reports no additional cardiovascular complaints Respiratory: Respiratory: Reports as per HPI, Reports no additional respiratory complaints, Reports cough and Reports dyspnea Gastrointestinal: Gastrointestinal: Reports as per HPI and Reports no additional gastrointestinal complaints Genitourinary: Genitourinary: Reports no additional female genitourinary complaints and Reports as per HPI Musculoskeletal: Musculoskeletal: Reports no additional musculoskeletal complaints, Reports as per HPI and Reports back pain Integumentary/Breasts: Skin/Breast: Reports system reviewed and no additional complaints, except as docu and Reports as per HPI Neurologic: Reports system reviewed and no additional complaints, except as documented and Reports as per HPI Psychiatric: Psychiatric: Reports no additional psychiatric complaints, Reports as per HPI and Reports anxiety Endocrine: Endocrine: Reports no additional endocrine complaints and Reports as per HPI Hematologic/Lymphatic: Hematologic/Lymphatic: Reports no additional hematologic/lymphatic complaints and Reports as per HPI Allergic/Immunologic: Allergic/Immunologic: Reports no additional allergic/immunologic complaints and Reports as per HPI PMFSH Past Medical History Medical History (Updated 01/16/22 @ 16:48 by Jama Mina MD) Anxiety about health Chronic back pain COPD (chronic obstructive pulmonary disease) Dependence on continuous supplemental oxygen Major depression, recurrent Nicotine dependence in remission Stage 4 lung cancer Underweight Surgical History Surgical History History of hysterectomy Hx of tonsillectomy Family History Family History Father Lung cancer Mother Cervical cancer Socia
--- NOTE | 2022-01-16 14:43 | ECG_ITS ---
Measurements Intervals Dixon Rate: 88 P: 69 SC: 136 QRS: -41 QRSD: 97 T: 67 QT: 366 QTc: 445 Interpretive Statements SINUS RHYTHM POSSIBLE LEFT ATRIAL ENLARGEMENT LEFT AXIS DEVIATION ANTEROSEPTAL INFARCT, AGE INDETERMINATE BORDERLINE ST-T WAVE ABNORMALITY- HIGH LATERAL LEADS BASELINE ARTIFACT- I, III, AVL, V1-V3 ABNORMAL ECG Electronically Signed On 01-16-2022 15:14:09 CDT by Luis Eduardo Burkett D.O.
[2022-01-16 14:51] VITALS: PULSE 91; RESP 18; O2SAT 92
[2022-01-16] MEDS: IPRATROPIUM 0.5 MG/ALBUTEROL SULFATE 2.5 MG AMPUL.NEB 3 ML INHALATION (14:51)
[2022-01-16 15:02] LABS: Basophils Absolute Auto 0.02 K/mm3 (0.00-0.10); Basophils Percent Auto 0.3 % (0.0-1.0); Hematocrit 39.4 % (35.0-42.0); Hemoglobin 12.1 g/dL (11.7-13.8); Immature Granulocyte Absolute 0.07 K/mm3 (0.00-0.00); Lymphocytes Absolute Auto 0.23 K/mm3 (1.10-4.50); Lymphocytes Percent Auto 3.2 % (18.0-42.0); Mean Corpuscular HGB Conc 30.7 g/dL (32.0-36.0); Mean Corpuscular Hemoglobin 32.2 pg (27.0-31.0); Mean Corpuscular Volume 104.8 fL (78.0-102.0); Monocytes Absolute Auto 0.24 K/mm3 (0.10-0.90); Monocytes Percent Auto 3.3 % (2.0-11.0); Neutrophils Absolute Auto 6.7 K/mm3 (1.7-7.2); Neutrophils Percent Auto 92.2 % (50.0-70.0); Platelet Count Result 211 K/mm3 (150-420); Red Blood Count 3.76 M/mm3 (4.20-5.40); Red Cell Distribution Width 13.2 % (11.6-14.4); White Blood Count 7.3 K/mm3 (4.8-10.8)
[2022-01-16 15:05] VITALS: PULSE 896; RESP 18; O2SAT 99
[2022-01-16 15:16] LABS: D Dimer 1.24 mg/L (0.19-0.50)
[2022-01-16 15:22] LABS: Lactic Acid Reflex 0.9 mmol/L (0.4-2.0)
[2022-01-16 15:23] LABS: Alanine Aminotransferase 16 U/L (14-59); Alkaline Phosphatase 54 U/L (46-116); Anion Gap 1 mmol/L (8-16); Aspartate Amino Transferase 13 U/L (15-37); Bilirubin,Total 0.3 mg/dL (0.00-1.00); Blood Urea Nitrogen 16 mg/dL (7-18); Calcium 8.8 mg/dL (8.5-10.1); Carbon Dioxide 42 mmol/L (21-32); Chloride 94 mmol/L (98-108); Estimated CRCL calculation 53 ml/min; Estimated Glomerular Filt Rate > 60; Glucose 138 mg/dL (70-99); NT Pro B Type Natriuretic Pept 1960 pg/mL (0-125); Osmolality Calculated 287 mOsm/kg (285-295); Potassium 4.5 mmol/L (3.5-5.1); Sodium 137 mmol/L (136-145); Total Protein 6.7 g/dL (6.4-8.2)
[2022-01-16 15:39] LABS: Influenza A QL RT-PCR Negative (Negative); Influenza B QL RT-PCR Negative (Negative); SARS-CoV-2 RNA PCR Negative (Negative)
[2022-01-16 16:00] VITALS: BP 151/66; PULSE 85; RESP 18; TEMP 36.7; O2SAT 99
[2022-01-16] MEDS: SODIUM CHLORIDE 0.9% IV 1,000 ML 999 ML IV CONT (16:36)
[2022-01-16] MEDS: methylPREDNISolone SOD SUCC 125 MG VIAL IV PUSH (16:59)
[2022-01-16] MEDS: AZITHROMYCIN 250 MG TABLET 500 MG PO (17:00)
[2022-01-16 17:16] VITALS: BP 146/70; PULSE 87; RESP 18; O2SAT 92
== END 2022-01-16 17:22 | disposition home or self-care (01) ==
PROVIDERS: Emergency Provider Internal Medicine Critical Care Medicine; PCP Family Medicine
DX: J98.19 Other pulmonary collapse (principal); J44.1 Chronic obstructive pulmonary disease with (acute) exacerbation; Z20.822 Contact with and (suspected) exposure to COVID-19; I50.9 Heart failure, unspecified
CPT/HCPCS: 36415; 71045; 71275; 80053; 83605; 83880; 84484; 85025; 85380; 87502; 93005; 94640; 96361; 96374; 99284; A9270; C9803; J2930; J7030; Q9967; U0003; U0005